=== PATIENT | male | born 1965 | race African-American/Black ===

== ENCOUNTER 2017-05-31 23:03 | Emergency (ER) | payer OTHER | END 2017-06-01 00:19 | disposition home or self-care (01) | LOC: ER 23:03 | DX: S02.5XXA Fracture of tooth (traumatic), initial encounter for closed fracture (principal); X58.XXXA Exposure to other specified factors, initial encounter; Y93.89 Activity, other specified; Y99.8 Other external cause status; Y92.89 Other specified places as the place of occurrence of the external cause | CPT/HCPCS: 99283 ==

== ENCOUNTER 2017-11-15 21:14 | Emergency (ER) | payer OTHER ==
[~2017-11-15] VITALS: Ht 198.1 cm; Wt 136.1 kg
[~2017-11-15 21:14] MED LIST: AMOX500C PO; HYDR-971 PO
[2017-11-15 21:49] VITALS: BP 138/62
[2017-11-15] MEDS ORDERED: METH4TAB2 PO (22:16)
[2017-11-15] MEDS ORDERED: CYCL10TA2 PO (22:16)
[2017-11-15] MEDS ORDERED: DICL50TA4 PO (22:16)
--- NOTE | 2017-11-15 22:17 | PHYS DOC ---
Past Medical History Past Medical History: No Pertinent History Past Surgical History: No Surgical History Additional Information: 9 CIGARETTES PER DAY Alcohol Use: None Drug Use: None Adult General Chief Complaint Chief Complaint: ELBOW PROBLEM HPI HPI Patient is a 52 year old male with no significant medical history who presents today complaining of 7 out of 10 right elbow pain worse on range of motion that has been going on for the last 3 days. Patient denies any known injury. Patient states his pain is worse when he is at work. 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 Patient is also requesting a couple days off work. Review of Systems Review of Systems Constitutional: Denies fever or chills [] Musculoskeletal: Reports right elbow pain. Integument: Denies rash or skin lesions [] Neurologic: Denies headache, focal weakness or sensory changes [] All other systems were reviewed and found to be within normal limits, except as documented in this note. Allergies Allergies Allergies Coded Allergies Type Severity Reaction Last Updated Verified No Known Drug Allergies 06/01/17 No Physical Exam Physical Exam Constitutional: Well developed, well nourished, no acute distress, non-toxic appearance. [] Skin: Warm, dry, no erythema, no rash. [] Back: No tenderness, no CVA tenderness. [] Extremities: Right elbow with no obvious deformity. No tenderness on palpation of the elbow. Full range of motion to the right elbow. Adequate flexion and extension of the elbow, adequate plantar flexion and dorsiflexion of the right forearm. Adequate radial, medial, ulnar sensation to the right upper extremity. +2 right radial pulse. Cap refill less than 2 seconds the right fingers. Neurologic: Alert and oriented X 3, normal motor function, normal sensory function, no focal deficits noted. [] Psychologic: Affect normal, judgement normal, mood normal. [] Current Patient Data Vital Signs Vital Signs Date Time Temp Pulse Resp B/P (MAP) Pulse Ox O2 Delivery O2 Flow Rate FiO2 11/15/17 21:49 98.1 67 16 138/62 (87) 98 Room Air 98.1 EKG EKG [] Radiology/Procedures Radiology/Procedures [] Course & Med Decision Making Course & Med Decision Making Pertinent Labs and Imaging studies reviewed. (See chart for details) This is a 52-year-old male patient presented to the ED today with right elbow pain, no known injury. Patient we discharged with diclofenac, Medrol Dosepak, and cyclobenzaprine. Ice elevation encouraged. Follow-up with PCP orthopedic doctor provided in one week. Dino Disclaimer Dino Disclaimer This electronic medical record was generated, in whole or in part, using a voice recognition dictation system. Departure Departure Impression: Primary Impression: Right elbow tendinitis Disposition: HOME, SELF-CARE Condition: STABLE Referrals: NO PCP (PCP) KOLTON ZEPEDA II, MD Follow-up in one week Patient Instructions: Tendinitis Additional Instructions: You were seen with right elbow tendinitis, take the prescribed medications as needed for pain. Ice and elevate the extremity. Come back to the ED at any point symptoms worsen. Scripts Cyclobenzaprine Hcl (CYCLOBENZAPRINE HCL) 10 Mg Tablet 1 TAB PO TID, #30 TAB Prov: LORELEI GOLD APRN 11/15/17 Methylprednisolone (MEDROL) 4 Mg Tab.ds.pk 1 PKG PO UD, #1 PKG Prov: LORELEI GOLD APRN 11/15/17 Diclofenac Sodium (DICLOFENAC SODIUM) 50 Mg Tablet.dr 1 TAB PO BID, #30 TAB 0 Refills Prov: LORELEI GOLD APRN 11/15/17 LORELEI GOLD APRN Nov 15, 2017 22:17
== END 2017-11-15 22:30 | disposition home or self-care (01) ==
LOC: ER 21:14
DX: M77.8 Other enthesopathies, not elsewhere classified (principal); M25.521 Pain in right elbow; F17.210 Nicotine dependence, cigarettes, uncomplicated
CPT/HCPCS: 99283

== ENCOUNTER 2018-05-02 22:49 | Emergency (ER) | payer OTHER ==
[~2018-05-02] VITALS: Ht 198.1 cm; Wt 129.7 kg
[~2018-05-02 22:49] MED LIST changes: +CYCL10TA2 PO; +DICL50TA4 PO; +HYDR-3164 PO; -HYDR-971 PO; +METH4TAB2 PO
[2018-05-02 23:00] VITALS: BP 151/73
--- NOTE | 2018-05-02 23:29 | PHYS DOC ---
Past Medical History Past Medical History: Bronchitis Past Surgical History: No Surgical History Alcohol Use: None Drug Use: None Adult General Chief Complaint Chief Complaint: COUGH HPI HPI Patient is a 52 year old male with a history of chronic bronchitis who presents with productive cough and congestion in his chest and sinuses. Pt reports these symptoms wax and wane the past month, recently got worse 4 days ago, and that he has "been fighting a cold" this whole month. He complains of cough producing yellow/white sputum, congestion w/out pain in his sinuses and chest -describing the altter as a "chest pressure", SOB, ERAZO, diarrhea, and a coughing attack that led to an episode of emesis. He reports having a home inhaler that usually helps w/ these symptoms but pt has not had his inhaler refilled and has been out for over a month, saying he needs a new prescription. Pt admits sick contacts at work. 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 Breathing treatments in the past have alleviated most of his symptoms. Pt denies any medical history other than chronic bronchitis and denies taking any home medications (other than his inhaler which is not filled at this time). Review of Systems Review of Systems Constitutional: Denies fever or chills Eyes: Denies change in visual acuity, redness, or eye pain HENT: Admits nasal congestion or sore throat Respiratory: Admitscough or shortness of breath Cardiovascular: No additional information not addressed in HPI [] GI: Denies abdominal pain, nausea, bloody stools. Admits to one episode of vomiting after a cough attack. Admits to 3--4 days of diarrhea : Denies dysuria or hematuria Musculoskeletal: Denies back pain or joint pain Integument: Denies rash or skin lesions Neurologic: Denies focal weakness or sensory changes. Admits ERAZO Endocrine: Denies polyuria or polydipsia All other systems were reviewed and found to be within normal limits, except as documented in this note. Current Medications Current Medications Current Medications Medications (Trade) Dose Ordered Sig/Megan Start Time Stop Time Status Last Admin Dose Admin Albuterol/ Ipratropium (Duoneb) 3 ml 1X ONCE 05/03/18 00:15 05/03/18 00:16 DC 3/20/19 00:09 3 ML Doxycycline Hyclate (Vibra-Tab) 100 mg 1X ONCE 05/03/18 00:15 05/03/18 00:16 DC 05/03/18 01:52 100 MG Prednisone (Prednisone) 50 mg 1X ONCE 05/03/18 00:15 05/03/18 00:16 DC 05/03/18 01:49 50 MG Allergies Allergies Allergies Coded Allergies Type Severity Reaction Last Updated Verified No Known Drug Allergies 06/01/17 No Physical Exam Physical Exam Constitutional: Well developed, well nourished, no acute distress, non-toxic appearance. HENT: Normocephalic, atraumatic, bilateral external ears normal, oropharynx moist, no oral exudates, nose normal. Oropharynx is mildly erythematous, could be irritation from frequent coughing episodes. Eyes: PERRLA, EOMI, conjunctiva normal, no discharge. Neck: Normal range of motion, no tenderness, supple, no stridor. Cardiovascular:Heart rate regular rhythm, no murmur Lungs & Thorax: Bilateral decreased breath sounds. Diffuse expiratory wheezes appreciated in all lung patino b/l Abdomen: Bowel sounds normal, soft, no tenderness, no masses, no pulsatile masses. Skin: Warm, dry, no erythema, no rash. Back: No tenderness, no CVA tenderness. Extremities: No tenderness, no cyanosis, no clubbing, ROM intact, no edema. Missing finger distal to proximal interphalangeal joint on right hand, 3rd and 4th fingers. Neurologic: Alert and oriented X 3, normal motor function, normal sensory function, no focal deficits noted. Psychologic: Affect normal, judgement normal, mood normal. Current Patient Data Vital Signs Vital Signs Date Time Temp Pulse Resp B/P (MAP) Pulse Ox O2 Delivery O2 Flow Rate FiO2 05/03/18 00:08 98 Room Air 05/02/18 23:00 98.1 71 19 151/73 (99) 98.1 Lab Values Laboratory Tests Test 05/03/18 00:05 Influenza Type A Antigen Negative (NEGATIVE) Influenza Type B Antigen Negative (NEGATIVE) EKG EKG [] Radiology/Procedures Radiology/Procedures [] Impressions: cxr neg acute, possible faint nodular infiltrate but not definite awaiting final read Course & Med Decision Making Course & Med Decision Making 52 year old afebrile male, with a history of chronic bronchitis and in need of a refill for his inhaler, presents to the ED w/ a 4 day history of productive cough, SOB, and chest congestion/pressure. Sputum is yellow/white and pt also reports nasal congestion w/ the sensation of postnasal drip. Pt works at a [employer] plant and admits to not always wearing his mask at work. On PE pt has distant breath sounds w/ diffuse expiratory wheezes in all lung patino. Nasal mucosa did not show any swelling in the turbinates or signs of inflammation. Oropharynx was slightly erythematous. Pt's O2 sat on room air was 98%. Ddx Chronic Bronchitis COPD Exacerbation Pneumonia Hypersensitivity pneumonitis Influenza Workup CXR, Respiratory treatment, albuterol, corticosteroids, O2 Influenza PCR neg. after treatment, pt is improved, resting comfortably has been sick for a month rx: abx, albuterol, prednisone return prec discussed. Dragon Disclaimer Dragon Disclaimer This electronic medical record was generated, in whole or in part, using a voice recognition dictation system. Departure Departure Impression: Primary Impression: Bronchitis Disposition: 01 HOME, SELF-CARE Condition: IMPROVED Referrals: NO PCP (PCP) Scripts Doxycycline Hyclate (DOXYCYCLINE HYCLATE) 100 Mg Tablet 1 TAB PO BID, #20 TAB Prov: STALNEY HARTMANN MD 05/03/18 Prednisone (PREDNISONE) 50 Mg Tablet 1 TAB PO DAILY, #5 TAB Prov: STANLEY HARTMANN MD 05/03/18 Albuterol Sulfate (PROAIR HFA INHALER) 8.5 Gm Hfa.aer.ad 1 PUFF INH PRN Q6HRS PRN for SHORTNESS OF BREATH, #1 INHALER 0 Refills Prov: STANLEY HARTMANN MD 05/03/18 STANLEY HARTMANN MD May 02, 2018 23:29
[2018-05-03] MEDS ORDERED: IPRATRPIUM/ALBUTEROL 0.5/2.5MG 3 ML NEBU. NEB ONE (00:15)
[2018-05-03] MEDS ORDERED: predniSONE 10 MG TABLET PO ONE (00:15)
[2018-05-03] MEDS ORDERED: DOXYCYCLINE HYCLATE 100 MG TABLET PO ONE (00:15)
[2018-05-03 00:49] LABS: INFLUENZA A PATIENT NEGATIVE (NEGATIVE); INFLUENZA B PATIENT NEGATIVE (NEGATIVE)
[2018-05-03] MEDS ORDERED: ALBU2.5V8 INH (01:10)
[2018-05-03] MEDS ORDERED: PRED50TA PO (01:10)
[2018-05-03] MEDS ORDERED: DOXY100T PO (01:10)
--- NOTE | 2018-05-03 07:35 | RAD ---
PROCEDURE: PORTABLE CHEST 1V CLINICAL INDICATION: cough COMPARISON: None FINDINGS: No pneumothorax identified. Cardiac and mediastinal contours unremarkable. No pulmonary consolidation or acute airspace disease. No acute osseous abnormalities identified. IMPRESSION: No pulmonary consolidation or acute airspace disease. Electronically signed by: Dequan Tejeda DO (05/03/2018 7:32 AM) [facility]
== END 2018-05-03 01:57 | disposition home or self-care (01) ==
LOC: ER 22:49
DX: J42 Unspecified chronic bronchitis (principal); R11.10 Vomiting, unspecified
CPT/HCPCS: 71045; 87804; 94640; 99284; J7512; J7620